=== PATIENT | male | born 1990 | race African-American/Black ===

== ENCOUNTER 2019-05-13 19:51 | Emergency (ER) | payer OTHER ==
[~2019-05-13] VITALS: Ht 185.4 cm; Wt 68.0 kg
[2019-05-13 20:05] VITALS: BP 112/76
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
--- NOTE | 2019-05-13 20:11 | Emergency Room Report ---
History of Present Illness General Chief Complaint: Behavioral Complaint Source: Patient Present Illness HPI Patient presents with complaints of rash to his hands Denies any chest pain or shortness of breath denies any contact with any chemicals that he recalls Denies any headache denies any abdominal pain He denies any itchiness to the hands however he felt that they were more red than usual Allergies: Coded Allergies: No Known Allergies (Unverified , 05/13/19) Patient History Past Medical History: see triage record Reviewed Nursing Documentation: PMH: Agreed; PSxH: Agreed Nursing Documentation-PMH History Of Psychiatric Problem: Yes Review of Systems All Other Systems: negative except mentioned in HPI Physical Exam Vital Signs Date Time Temp Pulse Resp B/P (MAP) Pulse Ox O2 Delivery O2 Flow Rate FiO2 05/13/19 20:01 97.9 65 16 109/76 (87) 98 Room Air Sp02 EP Interpretation: reviewed, normal General Appearance: well appearing, no apparent distress Head: normocephalic, atraumatic Eyes: bilateral eye PERRL, bilateral eye EOMI ENT: EOM grossly intact Neck: supple Respiratory: lungs clear, no respiratory distress, no retraction Cardiovascular #1: regular rate, rhythm Gastrointestinal: non tender, soft Musculoskeletal: normal inspection Neurologic: alert Psychiatric: other - Somewhat of a blunted affect Skin: other - Erythema dorsally to both hands no fluctuance Lymphatic: no adenopathy Medical Decision Making Diagnostic Impression: Primary Impression: Contact dermatitis ER Course Patient's exam is consistent with some contact dermatitis Patient does have some blunted affect and there was question of behavioral presentation however patient denies any homicidal or suicidal thoughts denies taking any medications And is otherwise stable for close outpatient follow-up Appropriate referrals Last Vital Signs Date Time Temp Pulse Resp B/P (MAP) Pulse Ox O2 Delivery O2 Flow Rate FiO2 05/13/19 20:01 97.9 65 16 109/76 (87) 98 Room Air Status: improved Disposition: HOME, SELF-CARE Condition: Improved Additional Instructions: Patient is provided with the discharge instructions notified to follow up with primary doctor in the next 2-3 days otherwise return to the er with any worsening symptoms. Please note that this report is being documented using [employer] technology. This can lead to erroneous entry secondary to incorrect interpretation by the dictating instrument. Harpreet Mariee DO May 13, 2019 20:11
--- NOTE | 2019-05-13 21:30 | NUR ---
ED Nurse Note: food and beverages provided
[2019-05-13 21:58] VITALS: BP 129/84
== END 2019-05-13 21:58 | disposition home or self-care (01) ==
LOC: EDBD 19:51 → EMR 20:15
DX: L25.9 Unspecified contact dermatitis, unspecified cause (principal)
CPT/HCPCS: 99281